=== PATIENT | male | born 1940 | race Two or more races ===

== ENCOUNTER 2017-11-12 22:58 | Inpatient (IN) | payer OTHER, MEDICAID ==
[~2017-11-12] VITALS: Ht 160 cm; Wt 52.8 kg
[2017-11-12 23:08] VITALS: BP 123/60
[2017-11-13] VITALS (10 sets, daily range): BP systolic 91–136; BP diastolic 57–70
[2017-11-13 00:36] LABS: BASOPHILS % (AUTO) 0.8 % (0.0-2.0); HEMATOCRIT 32.6 % (42.0-52.0); HEMOGLOBIN 10.7 G/DL (14.2-18.0); LYMPHOCYTES % (AUTO) 21.1 % (20.0-45.0); MEAN CORPUSCULAR VOLUME 89 FL (80-99); MONOCYTES % (AUTO) 11.7 % (1.0-10.0); NEUTROPHILS % (AUTO) 65.5 % (45.0-75.0); PLATELET COUNT 210 K/UL (150-450); RED BLOOD COUNT 3.66 M/UL (4.70-6.10); RED CELL DISTRIBUTION WIDTH 15.8 % (11.6-14.8); WHITE BLOOD COUNT 6.4 K/UL (4.8-10.8)
[2017-11-13 00:46] LABS: ANION GAP 2 mmol/L (5-15); BLOOD UREA NITROGEN 15 mg/dL (7-18); CALCIUM 6.9 MG/DL (8.5-10.1); CARBON DIOXIDE 35 MMOL/L (21-32); CHLORIDE 99 MMOL/L (98-107); CREATININE 0.8 MG/DL (0.55-1.30); POTASSIUM 3.1 MMOL/L (3.5-5.1); SODIUM 136 MMOL/L (136-145)
[2017-11-13 00:49] LABS: INR 1.2 (0.9-1.1)
[2017-11-13 00:56] LABS: ALANINE AMINOTRANSFERASE 18 U/L (12-78); ALBUMIN 1.9 G/DL (3.4-5.0); ALBUMIN/GLOBULIN RATIO 0.6 (1.0-2.7); ALKALINE PHOSPHATASE 60 U/L (46-116); ASPARTATE AMINO TRANSFERASE 22 U/L (15-37); BILIRUBIN,TOTAL 0.3 MG/DL (0.2-1.0); CREATINE KINASE 50 U/L (26-308)
[2017-11-13] MEDS ORDERED: FUROSEMIDE40 MG ORAL (01:50)
[2017-11-13] MEDS ORDERED: HUMALOG 75/255 UNITS SUBQ (01:50)
[2017-11-13] MEDS ORDERED: ASPIR 8181 MG ORAL (01:50)
[2017-11-13] MEDS ORDERED: FERROUSUL325 M1 PO (01:50)
[2017-11-13] MEDS ORDERED: METRONIDAZOLE500 MG ORAL (01:50)
[2017-11-13] MEDS ORDERED: GABAPENTIN600 MG ORAL (01:50)
[2017-11-13] MEDS ORDERED: MAGNESIUM OXID400 M1 ORAL (01:50)
[2017-11-13] MEDS ORDERED: BUSPIRONE HCL10 M1 ORAL (01:50)
[2017-11-13] MEDS ORDERED: OMEPRAZOLE40 M1 ORAL (01:50)
[2017-11-13] MEDS ORDERED: METOPROLOL TART25 MG ORAL (01:50)
[2017-11-13] MEDS ORDERED: DICYCLOMINE HCL10 MG PO (01:50)
[2017-11-13] MEDS ORDERED: COLACE100 MG ORAL (01:50)
[2017-11-13] MEDS ORDERED: POTASSIUM CHLO20 ME3 PO (01:57)
[2017-11-13] MEDS ORDERED: PRO-STAT LIQUID30 ML ORAL (01:57)
[2017-11-13] MEDS ORDERED: ACETAMINOPHEN325 M1 ORAL (01:57)
[2017-11-13] MEDS ORDERED: TEMAZEPAM30 MG ORAL (01:57)
[2017-11-13] MEDS ORDERED: TRAMADOL HCL50 MG ORAL (01:57)
--- NOTE | 2017-11-13 02:29 | Emergency Room Report ---
History of Present Illness General Chief Complaint: Syncope Source: Patient Present Illness HPI Patient brought by EMS from after a syncopal episode. He was hypotensive in the field and 100 ml NS were given with improvement in BP. There was no head trauma sustained when he passed out. Patient denies chest pain, headache, dyspnea, NVD, dysuria, extremity pain, rashes. He is on Lasix and has edema. Apparently, he has problems with low potassium. No fevers. Daughter states he was complaining of thirst the last 2 days. He has dementia and confabulates. Allergies: Coded Allergies: NAPROXEN (Verified Allergy, Unknown, 11/12/17) Patient History Limited by: medical condition Past Medical History: see triage record Past Surgical History: other - L knee replacement Social History Narrative SNF Reviewed Nursing Documentation: PMH: Agreed; PSxH: Agreed Nursing Documentation-PMH Hx Hypertension: Yes Hx Diabetes: Yes - DM II Hx Cancer: Yes - Colon Cancer Review of Systems All Other Systems: limited Physical Exam Vital Signs Date Time Temp Pulse Resp B/P (MAP) Pulse Ox O2 Delivery O2 Flow Rate FiO2 11/12/17 22:57 98.4 86 16 87/59 100 Room Air 98.4 Sp02 EP Interpretation: reviewed, normal General Appearance: well appearing, no apparent distress, GCS 15 Head: normocephalic Eyes: bilateral eye normal inspection, bilateral eye PERRL ENT: moist mucus membranes Neck: supple Respiratory: chest non-tender, lungs clear, normal breath sounds Cardiovascular #1: regular rate, rhythm, edema - 3+ pitting LE bilat Cardiovascular #2: 2+ radial (R), 2+ dorsalis pedis (R), 2+ dorsalis pedis (L) Gastrointestinal: normal inspection, normal bowel sounds, non tender, no mass, non-distended Genitourinary: no CVA tenderness Musculoskeletal: back normal, normal range of motion, no calf tenderness, Xiomara 's Sign negative Neurologic: alert, motor strength/tone normal, DTRs symmetric, sensory intact, oriented - X2 Psychiatric: mood/affect normal - poor recent memory and confabulates Skin: normal inspection, warm/dry Medical Decision Making Diagnostic Impression: Primary Impression: Syncope Qualified Codes: R55 - Syncope and collapse Additional Impressions: Hypotension (arterial) Qualified Codes: I95.9 - Hypotension, unspecified Contraction alkalosis Hypokalemia Edema Qualified Codes: E40 - Kwashi[place]or Dementia Qualified Codes: F03.90 - Unspecified dementia without behavioral disturbance ER Course Patient with syncope and hypotension. DDX: sepsis, AMI, dehydration, arrhythmia amongst others. Patient with total body sodium excess. Evaluation with EKG, CXR ands labs. BP better with small amount of IV fluids. Based on exam, PE excluded. EKG without injury. CXR no CHF. Labs with low potassium and elevated bicarb. Normal renal function. Albumen low. Normal WBC, anemia. Hypotensive again here. Fluid bolus ordered. BC and lactate ordered. Lactate normal. Discussed with Dr. Clark (IPA) agrees with admission here. Discussed CT of head, not indicated at this time. BP better after fluids. Admit tele Dr. Holguin. Laboratory Tests Test 11/13/17 00:20 11/13/17 02:35 White Blood Count 6.4 K/UL (4.8-10.8) Red Blood Count 3.66 M/UL (4.70-6.10) L Hemoglobin 10.7 G/DL (14.2-18.0) L Hematocrit 32.6 % (42.0-52.0) L Mean Corpuscular Volume 89 FL (80-99) Mean Corpuscular Hemoglobin 29.2 PG (27.0-31.0) Mean Corpuscular Hemoglobin Concent 32.8 G/DL (32.0-36.0) Red Cell Distribution Width 15.8 % (11.6-14.8) H Platelet Count 210 K/UL (150-450) Mean Platelet Volume 5.5 FL (6.5-10.1) L Neutrophils (%) (Auto) 65.5 % (45.0-75.0) Lymphocytes (%) (Auto) 21.1 % (20.0-45.0) Monocytes (%) (Auto) 11.7 % (1.0-10.0) H Eosinophils (%) (Auto) 1.0 % (0.0-3.0) Basophils (%) (Auto) 0.8 % (0.0-2.0) Prothrombin Time 12.8 SEC (9.30-11.50) H Prothrombin Time INR 1.2 (0.9-1.1) H PTT 25 SEC (23-33) Sodium Level 136 MMOL/L (136-145) Potassium Level 3.1 MMOL/L (3.5-5.1) L Chloride Level 99 MMOL/L (98-107) Carbon Dioxide Level 35 MMOL/L (21-32) H Anion Gap 2 mmol/L (5-15) L Blood Urea Nitrogen 15 mg/dL (7-18) Creatinine 0.8 MG/DL (0.55-1.30) Estimate Glomerular Filtration Rate mL/min (>60) Glucose Level 112 MG/DL (74-106) H Calcium Level 6.9 MG/DL (8.5-10.1) L Total Bilirubin 0.3 MG/DL (0.2-1.0) Aspartate Amino Transferase (AST) 22 U/L (15-37) Alanine Aminotransferase (ALT) 18 U/L (12-78) Alkaline Phosphatase 60 U/L (46-116) Total Creatine Kinase 50 U/L (26-308) Troponin I 0.009 ng/mL (0.000-0.056) Pro-B-Type Natriuretic Peptide 170 pg/mL (0-125) H Total Protein 5.1 G/DL (6.4-8.2) L Albumin 1.9 G/DL (3.4-5.0) L Globulin 3.2 g/dL Albumin/Globulin Ratio 0.6 (1.0-2.7) L Urine Color Pale yellow Urine Appearance Clear Urine pH 7 (4.5-8.0) Urine Specific Wilson 1.005 (1.005-1.035) Urine Protein Negative (NEGATIVE) Urine Glucose (UA) Negative (NEGATIVE) Urine Ketones Negative (NEGATIVE) Urine Occult Blood Negative (NEGATIVE) Urine Nitrite Negative (NEGATIVE) Urine Bilirubin Negative (NEGATIVE) Urine Urobilinogen Normal MG/DL (0.0-1.0) Urine Leukocyte Esterase Negative (NEGATIVE) Lactic Acid Level 1.20 mmol/L (0.4-2.0) EKG Diagnostic Results Rate: normal Rhythm: NSR Rhythm Strip Diag. Results EP Interpretation: yes Rhythm: NSR, no PVC's, no ectopy Chest X-Ray Diagnostic Results Chest X-Ray Diagnostic Results : Chest X-Ray Ordered: Yes # of Views/Limited/Complete: 1 View Indication: Other Interpretation: no consolidation, no effusion, no pneumothorax Impression: Other Electronically Signed by: Electronically signed by Jose Rafael Crowe MD Status: improved Disposition: ADMITTED INPATIENT Condition: Serious Referrals: [facility],REFERR[facility] (PCP) Jose Rafael Crowe M.D. Nov 13, 2017 02:29
[2017-11-13] MEDS ORDERED: NS 250 ML IVPB ONE (02:30)
[2017-11-13] MEDS ORDERED: Glucagon 1mg Inj IV ONE (02:30)
[2017-11-13 03:08] LABS: APPEARANCE,URINE CLEAR; BILIRUBIN, URINE NEGATIVE (NEGATIVE); COLOR,URINE PALE YELLOW; GLUCOSE, URINE (UA) NEGATIVE (NEGATIVE); KETONES,URINE NEGATIVE (NEGATIVE); LEUKOCYTE ESTERASE ,URINE NEGATIVE (NEGATIVE); NITRITE,URINE NEGATIVE (NEGATIVE); PH,URINE 7 (4.5-8.0); PROTEIN,URINE NEGATIVE (NEGATIVE); UROBILINOGEN,URINE NORMAL MG/DL (0.0-1.0)
--- NOTE | 2017-11-13 10:12 | Diagnostic Imaging Report ---
Indication: Dyspnea Comparison: None A single view chest radiograph was obtained. Findings: Cardiomediastinal appearance is within normal limits for age. Pulmonary vascularity is appropriate. The diaphragmatic contour is smooth and costophrenic angles are sharp. No pleural effusions are identified. The bones are osteopenic. Degenerative changes of thoracic spine noted. Impression: No acute findings
[2017-11-13] MEDS ORDERED: traMADol 50mg tab ORAL PRN (11:00)
[2017-11-13] MEDS ORDERED: Acetaminophen 500mg (ES) tab ORAL PRN (11:00)
[2017-11-13] MEDS: metroNIDAZOLE 500mg tab ORAL SCH ×2 (14:01→22:23)
--- NOTE | 2017-11-13 16:30 | History & Physical ---
History and Physical History & Physicial dict hypotension, syncope c diff colitis DM called ID, cardiology edema; no fluids needed echo may need midodrine for autonomic neuropathy Jerrod Holguin MD Nov 13, 2017 16:30
--- NOTE | 2017-11-13 16:39 | Cardiology Report ---
APPROVED REPORT EKG Measurement Heart [id number] Sinus rhythm with premature supraventricular complexes and with frequent premature ventricular complexes Otherwise normal ECG
--- NOTE | 2017-11-13 17:13 | Cardiology Progress Note ---
Assessment/Plan Assessment/Plan full note dicated orthsttic vitl ivf echo serial enzyme kg tele observation [id number] Objective Last 24 Hour Vital Signs Date Time Temp Pulse Resp B/P (MAP) Pulse Ox O2 Delivery O2 Flow Rate FiO2 11/13/17 08:51 Room Air 11/13/17 08:20 98.3 96 18 107/61 100 Room Air 98.3 11/13/17 08:20 98.3 96 18 107/61 100 Room Air 208.9 11/13/17 08:00 97.4 99 18 108/66 (80) 99 97.4 11/13/17 07:44 98.1 94 18 94/57 98 Room Air 98.1 11/13/17 05:58 102 19 95/58 98 Room Air 11/13/17 04:02 88 15 118/58 98 Room Air 11/13/17 02:51 98.1 91 12 136/70 100 Room Air 98.1 11/13/17 00:51 98.0 87 17 94/57 97 Room Air 98.0 11/12/17 23:08 123/60 11/12/17 22:57 98.4 86 16 87/59 100 Room Air 98.4 Intake and Output 11/12/17 11/13/17 19:00 07:00 Intake Total 250 ml Balance 250 ml IV Total 250 ml # Voids 1 Laboratory Tests Test 11/13/17 00:20 11/13/17 02:35 White Blood Count 6.4 K/UL (4.8-10.8) Red Blood Count 3.66 M/UL (4.70-6.10) L Hemoglobin 10.7 G/DL (14.2-18.0) L Hematocrit 32.6 % (42.0-52.0) L Mean Corpuscular Volume 89 FL (80-99) Mean Corpuscular Hemoglobin 29.2 PG (27.0-31.0) Mean Corpuscular Hemoglobin Concent 32.8 G/DL (32.0-36.0) Red Cell Distribution Width 15.8 % (11.6-14.8) H Platelet Count 210 K/UL (150-450) Mean Platelet Volume 5.5 FL (6.5-10.1) L Neutrophils (%) (Auto) 65.5 % (45.0-75.0) Lymphocytes (%) (Auto) 21.1 % (20.0-45.0) Monocytes (%) (Auto) 11.7 % (1.0-10.0) H Eosinophils (%) (Auto) 1.0 % (0.0-3.0) Basophils (%) (Auto) 0.8 % (0.0-2.0) Prothrombin Time 12.8 SEC (9.30-11.50) H Prothromb Time International Ratio 1.2 (0.9-1.1) H Activated Partial Thromboplast Time 25 SEC (23-33) Sodium Level 136 MMOL/L (136-145) Potassium Level 3.1 MMOL/L (3.5-5.1) L Chloride Level 99 MMOL/L (98-107) Carbon Dioxide Level 35 MMOL/L (21-32) H Anion Gap 2 mmol/L (5-15) L Blood Urea Nitrogen 15 mg/dL (7-18) Creatinine 0.8 MG/DL (0.55-1.30) Estimat Glomerular Filtration Rate mL/min (>60) Glucose Level 112 MG/DL (74-106) H Calcium Level 6.9 MG/DL (8.5-10.1) L Total Bilirubin 0.3 MG/DL (0.2-1.0) Aspartate Amino Transf (AST/SGOT) 22 U/L (15-37) Alanine Aminotransferase (ALT/SGPT) 18 U/L (12-78) Alkaline Phosphatase 60 U/L (46-116) Total Creatine Kinase 50 U/L (26-308) Troponin I 0.009 ng/mL (0.000-0.056) Pro-B-Type Natriuretic Peptide 170 pg/mL (0-125) H Total Protein 5.1 G/DL (6.4-8.2) L Albumin 1.9 G/DL (3.4-5.0) L Globulin 3.2 g/dL Albumin/Globulin Ratio 0.6 (1.0-2.7) L Urine Color Pale yellow Urine Appearance Clear Urine pH 7 (4.5-8.0) Urine Specific [place] 1.005 (1.005-1.035) Urine Protein Negative (NEGATIVE) Urine Glucose (UA) Negative (NEGATIVE) Urine Ketones Negative (NEGATIVE) Urine Occult Blood Negative (NEGATIVE) Urine Nitrite Negative (NEGATIVE) Urine Bilirubin Negative (NEGATIVE) Urine Urobilinogen Normal MG/DL (0.0-1.0) Urine Leukocyte Esterase Negative (NEGATIVE) Lactic Acid Level 1.20 mmol/L (0.4-2.0) Yuniel Pina MD Nov 13, 2017 17:13
[2017-11-13] MEDS: NovoLOG Insulin Flexpen SUBQ SCH ×2 (17:43→21:00)
[2017-11-13] MEDS: Magnesium Oxide 400mg tab ORAL SCH (17:48)
[2017-11-13] MEDS: BusPIRone 5mg Tab ORAL SCH (17:48)
[2017-11-13] MEDS: Dicyclomine HCl 10mg/5ml oral soln ORAL SCH (17:48)
[2017-11-13] MEDS: Vancomycin oral 125mg/2.5ml ORAL SCH ×2 (19:03→23:37)
[2017-11-13] MEDS ORDERED: Metoprolol 25mg tab ORAL SCH (21:00)
--- NOTE | 2017-11-13 23:00 | History and Physical Report ---
DATE OF ADMISSION: 11/12/2017 HISTORY OF PRESENT ILLNESS: The patient is a poor historian. He was transferred here to the emergency room from a skilled nursing because of hypotension and syncope. He has been at the nursing facility since approximately 11/06/2017. Prior to that, he was hospitalized at [facility] with C. diff colitis and abdominal pain. The patient was evaluated in the emergency department and became hypotensive again. Fluids were given and he was admitted. PAST MEDICAL HISTORY: Showed C. 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 MEDICATIONS: Reviewed and reconciled. ALLERGIES: Naprosyn. REVIEW OF SYSTEMS: The patient feels weak. He continues to have diarrhea and bloating. He has no shortness of breath or chest pain. He has ankle edema. There is no cardiac history. PHYSICAL EXAMINATION: GENERAL: The patient is alert and responds appropriately. He appears weak and chronically ill. There is no fever. VITAL SIGNS: Blood pressure ranged from 87/59 to 108/66 today. Other vital signs are normal. Saturation is normal. HEENT: The head is normocephalic. NECK: He has no jugular venous distention. CHEST: Clear. CARDIAC: Rhythm is regular. ABDOMEN: Soft, but moderately distended. There is no tenderness or mass. There is no ascites or organomegaly. EXTREMITIES: A 2+ edema. No clubbing or cyanosis. LABORATORY DATA: The white count is normal. The hemoglobin is 10.7. Platelets are normal. The potassium is low at 3.1. Blood sugar 112. Albumin 1.9. Natriuretic peptide 170. Calcium is low at 6.9. Coagulation is normal. Urinalysis is negative. IMPRESSION: 1. Hypotension. 2. Clostridium difficile colitis with persistent diarrhea. 3. Diabetes with history of neuropathy. 4. Severe protein-calorie malnutrition with edema. 5. Possible congestive heart failure. PLAN: The patient will be evaluated with appropriate laboratory studies and echocardiogram will be obtained. He is already fluid overloaded and I do not believe additional fluids are indicated. Cardiology consultation has been requested. Jerrod Holguin M.D. DR: ADALID JOB#: [id number] CC: Jerrod Holguin M.D.; Fax#: [phone] DEMARCO JAMES M.D. ; FAX#: [phone]
[2017-11-14] VITALS (7 sets, daily range): BP systolic 112–173; BP diastolic 64–90
--- NOTE | 2017-11-14 00:15 | Consultation ---
DATE OF CONSULTATION: 11/13/2017 CARDIOLOGY CONSULTATION CONSULTING PHYSICIAN: Yuniel Pina M.D. REFERRING PHYSICIAN: Jerrod Holguin M.D. REASON FOR REFERRAL: Syncope. HISTORY OF PRESENT ILLNESS: This is an elderly gentleman who is a resident of convalescent facility, who has had several hospitalizations recently and recently discharged from [facility] to a convalescent facility on 11/05/2017. He presents to this hospital by paramedics. According to document manager run sheet, the patient with generalized weakness and possible syncope episode. The patient was found on the ground next to his bed, alert and slow to respond. No obvious trauma. No neurological deficit and the patient denied any chest pain, shortness of breath, nausea, or vomiting. The patient himself tells me he does not remember how he got to the hospital here. He is not sure what has happened. Nevertheless, he does not have any chest pain or pressure. There is no PND. There is no orthopnea. No palpitations. He denies any dizziness on standing on usual basis. His main issue is that he has had problems with a lot of gas and abdominal distention it seems like. He has minimal diarrhea according to himself. He has never had a syncopal episode before. He has never had any cardiac conditions previously. PAST MEDICAL HISTORY: According to the records from [facility] includes history of intractable diarrhea secondary to C. difficile colitis, sepsis, dehydration, diabetes mellitus, hypertension, history of colon cancer that was resected and radiation therapy subsequent to that back in August 2017. He denies any history of stroke, history of hyperlipidemia. No history of hepatitis or tuberculosis. No asthma or emphysema. No ulcers. No kidney problems, liver problems, thyroid problems. Questionable anemia. Possibly arthritis. No HIV or AIDS. No blood clots and he does have enlarged prostate on questioning. MEDICATIONS: Buspirone, aspirin 81 mg, ferrous sulfate, Flagyl, insulin sliding scale, magnesium oxide, omeprazole, Pro-Stat, temazepam, tramadol, and Tylenol. Reportedly, he is on metoprolol too although I am not completely clear on that medication at this time. ALLERGIES: No allergies to medications. SOCIAL HISTORY: He used to smoke and drink, both were discontinued back in 1979. He denies any use of drugs. REVIEW OF SYSTEMS: GASTROINTESTINAL: He has a lot of gas as mentioned with good distention. No bloody or black stool. GENITOURINARY: Denies any burning or blood in the urine. PULMONARY: Occasional coughing. CONSTITUTIONAL: Negative. NEUROLOGIC: Negative. PHYSICAL EXAMINATION: GENERAL: Shows to be elderly gentleman, in no respiratory distress, lying relatively flat at approximately 10 degrees head-of-bed elevation. NECK: Supple. No jugular venous distention. No abdominojugular reflux noted. LUNGS: Clear to auscultation and percussion. CARDIAC: S1 is normal. S2 is normal. Regular rate and rhythm. No heaves, thrills, gallops, or rubs are noted. ABDOMEN: Somewhat distended. No guarding. No rigidity. No tympany and no rebound tenderness. EXTREMITIES: There is no clubbing or cyanosis, but he does have some edema of 1 to 2+ to the lower extremities bilaterally. ASSESSMENT AND PLAN: 1. Altered level of consciousness with presentation to the emergency room. 2. Possible syncope. 3. History of colorectal cancer, status post resection, chemo, and radiation therapy. 4. Recent C. difficile colitis with profound diarrhea. 5. Diabetes mellitus. 6. Hypertension. 7. Previous history of tobacco and alcohol use. Dr. Holguin, this patient was seen in cardiac consultation. The document manager run sheet indicated that the patient when initially found had blood pressure documented by the paramedics in the 87/39 and subsequently 90/61. His blood pressure here has been as high as 107/61. He does have some peripheral edema. He is afebrile at the present time. His laboratories show white count to be normal, hemoglobin low at 10.7, and platelet count of 210,000. Sodium was 136, potassium 3.1, chloride 99, bicarbonate 35, BUN of 15, creatinine 0.8, and glucose of 112. Calcium is decreased at 6.9 with albumin of 1.9. ProBNP is only 170. Total protein of 5.1. Lactic acid of 1.2. Coagulations, INR 1.0 and PTT of 25. His electrocardiogram shows sinus with premature atrial complexes, really no significant ST or T-wave abnormalities. He does not endorse any signs or symptoms of congestive heart failure. His x-ray of the chest that was performed in the emergency room shows appropriate vascularity contour, diaphragm smooth, costophrenic angles are sharp, no effusion identified, bones are osteopenic. The etiology of syncope needs to be clarified. He did have some low blood pressure at the time of his presentation to the emergency room or being found by the paramedics, although he does have some peripheral edema. He does carry a diagnosis of hypertension and he is on metoprolol being 25 mg twice a day. Nevertheless, he will have orthostatic vitals checked. An echocardiogram will be ordered. Serial enzymes will be checked. The possible etiologies of course include vasodepressor syncope or bradycardia. Bradycardia has not been documented on any of his rhythms despite the fact that he previously has been on beta-blockers. I recommend IV fluid administration if the echocardiogram is normal and repeat orthostatic vitals. Yuniel Pina M.D. DR: TALON JOB#: [id number] CC:
[2017-11-14] MEDS: Vancomycin oral 125mg/2.5ml ORAL SCH ×3 (06:10→17:17)
[2017-11-14] MEDS: metroNIDAZOLE 500mg tab ORAL SCH ×2 (06:10→13:26)
[2017-11-14] MEDS: NovoLOG Insulin Flexpen SUBQ SCH ×4 (06:12→21:16)
[2017-11-14 07:51] LABS: BASOPHILS % (AUTO) 1.2 % (0.0-2.0); EOSINOPHILS % (AUTO) 0.9 % (0.0-3.0); HEMATOCRIT 30.9 % (42.0-52.0); HEMOGLOBIN 10.1 G/DL (14.2-18.0); MEAN CORPUSCULAR VOLUME 90 FL (80-99); MONOCYTES % (AUTO) 11.7 % (1.0-10.0); NEUTROPHILS % (AUTO) 63.3 % (45.0-75.0); PLATELET COUNT 221 K/UL (150-450); RED BLOOD COUNT 3.43 M/UL (4.70-6.10); RED CELL DISTRIBUTION WIDTH 16.5 % (11.6-14.8); WHITE BLOOD COUNT 4.5 K/UL (4.8-10.8)
[2017-11-14 08:11] LABS: ALANINE AMINOTRANSFERASE 18 U/L (12-78); ALBUMIN 1.8 G/DL (3.4-5.0); ALBUMIN/GLOBULIN RATIO 0.6 (1.0-2.7); ALKALINE PHOSPHATASE 39 U/L (46-116); ANION GAP 3 mmol/L (5-15); ASPARTATE AMINO TRANSFERASE 21 U/L (15-37); BILIRUBIN,TOTAL 0.4 MG/DL (0.2-1.0); BLOOD UREA NITROGEN 8 mg/dL (7-18); CALCIUM 7.3 MG/DL (8.5-10.1); CARBON DIOXIDE 33 MMOL/L (21-32); CHLORIDE 104 MMOL/L (98-107); CREATININE 0.7 MG/DL (0.55-1.30); SODIUM 140 MMOL/L (136-145)
[2017-11-14] MEDS: BusPIRone 5mg Tab ORAL SCH ×2 (09:14→17:09)
[2017-11-14] MEDS: Dicyclomine HCl 10mg/5ml oral soln ORAL SCH ×2 (09:14→17:08)
[2017-11-14] MEDS: Magnesium Oxide 400mg tab ORAL SCH ×2 (09:15→17:08)
--- NOTE | 2017-11-14 18:43 | Infectious Diseases Prog Note ---
Assessment/Plan Assessment/Plan Full consult dictated: A) 1) c.diff. colitis and diarrhea 2) pmh noted 3) allergies - naproxen P) 1) po vancomycin - plan on 10-14 day course 2) f/u labs 3) d/w Dr. Holguin 4) thank you Subjective Allergies: Coded Allergies: NAPROXEN (Verified Allergy, Unknown, 11/12/17) Objective Vital Signs Last 24 Hour Vital Signs Date Time Temp Pulse Resp B/P (MAP) Pulse Ox O2 Delivery O2 Flow Rate FiO2 11/14/17 16:00 97.9 69 20 125/81 (96) 98 97.9 11/14/17 16:00 94 11/14/17 12:00 92 11/14/17 12:00 97.9 85 19 112/64 (80) 98 97.9 11/14/17 09:00 125 11/14/17 09:00 104 11/14/17 09:00 109 11/14/17 09:00 Room Air 11/14/17 08:00 98.6 104 17 112/71 (85) 96 98.6 11/14/17 08:00 111 11/14/17 04:00 98.2 97 18 112/71 (85) 95 98.2 11/14/17 03:29 96 11/14/17 00:25 98.7 95 19 118/72 (87) 98 98.7 11/14/17 00:00 98.6 93 19 173/90 (117) 98 98.6 11/13/17 23:56 86 11/13/17 20:00 98.7 87 18 91/61 (71) 98 98.7 11/13/17 19:58 95 11/13/17 19:27 Room Air Height (Feet): 5 Height (Inches): 3.00 Weight (Pounds): 116 Microbiology Date/Time Source Procedure Growth Status 11/13/17 02:35 Blood Blood Culture - Preliminary NO GROWTH AFTER 24 HOURS Resulted 11/13/17 02:35 Blood Blood Culture - Preliminary NO GROWTH AFTER 24 HOURS Resulted 11/13/17 14:20 Stool Clostridium difficile Toxin Assay - Final Complete Laboratory Tests Test 11/14/17 07:10 White Blood Count 4.5 K/UL (4.8-10.8) L Red Blood Count 3.43 M/UL (4.70-6.10) L Hemoglobin 10.1 G/DL (14.2-18.0) L Hematocrit 30.9 % (42.0-52.0) L Mean Corpuscular Volume 90 FL (80-99) Mean Corpuscular Hemoglobin 29.3 PG (27.0-31.0) Mean Corpuscular Hemoglobin Concent 32.6 G/DL (32.0-36.0) Red Cell Distribution Width 16.5 % (11.6-14.8) H Platelet Count 221 K/UL (150-450) Mean Platelet Volume 5.6 FL (6.5-10.1) L Neutrophils (%) (Auto) 63.3 % (45.0-75.0) Lymphocytes (%) (Auto) 23.0 % (20.0-45.0) Monocytes (%) (Auto) 11.7 % (1.0-10.0) H Eosinophils (%) (Auto) 0.9 % (0.0-3.0) Basophils (%) (Auto) 1.2 % (0.0-2.0) Sodium Level 140 MMOL/L (136-145) Potassium Level 4.0 MMOL/L (3.5-5.1) Chloride Level 104 MMOL/L (98-107) Carbon Dioxide Level 33 MMOL/L (21-32) H Anion Gap 3 mmol/L (5-15) L Blood Urea Nitrogen 8 mg/dL (7-18) Creatinine 0.7 MG/DL (0.55-1.30) Estimat Glomerular Filtration Rate mL/min (>60) Glucose Level 107 MG/DL (74-106) H Hemoglobin A1c 5.6 % (4.3-6.0) Calcium Level 7.3 MG/DL (8.5-10.1) L Magnesium Level 1.6 MG/DL (1.8-2.4) L Total Bilirubin 0.4 MG/DL (0.2-1.0) Aspartate Amino Transf (AST/SGOT) 21 U/L (15-37) Alanine Aminotransferase (ALT/SGPT) 18 U/L (12-78) Alkaline Phosphatase 39 U/L (46-116) L Troponin I 0.014 ng/mL (0.000-0.056) Total Protein 4.7 G/DL (6.4-8.2) L Albumin 1.8 G/DL (3.4-5.0) L Globulin 2.9 g/dL Albumin/Globulin Ratio 0.6 (1.0-2.7) L Prostate Specific Antigen 0.25 ng/mL (0.13-4.0) Thyroid Stimulating Hormone (TSH) 6.500 uiU/mL (0.358-3.740) Current Medications Medications (Trade) Dose Ordered Sig/David Route PRN Reason Start Time Stop Time Status Last Admin Dose Admin Acetaminophen (Tylenol) 500 mg BIDPRN PRN ORAL Mild Pain/Temp > 100.5 11/13/17 11:00 12/13/17 10:59 Buspirone HCl (Buspar) 10 mg BID ORAL 11/13/17 18:00 12/13/17 17:59 11/14/17 17:09 Dextrose (Dextrose 50%) 25 ml STAT PRN IV Hypoglycemia 11/13/17 12:00 12/13/17 11:59 Dextrose (Dextrose 50%) 50 ml STAT PRN IV Hypoglycemia 11/13/17 12:00 12/13/17 11:59 Dicyclomine HCl (Bentyl) 20 mg BID ORAL 11/13/17 18:00 12/13/17 17:59 11/14/17 17:08 Ferrous Sulfate (Feosol) 325 mg BID ORAL 11/13/17 18:00 12/13/17 17:59 11/14/17 17:09 Gabapentin (Neurontin) 600 mg BEDTIME ORAL 11/13/17 21:00 12/13/17 20:59 11/13/17 21:01 Insulin Aspart (NovoLOG) BEFORE MEALS AND HS SUBQ 11/13/17 16:30 12/13/17 16:29 11/14/17 17:01 Magnesium Oxide (Mag-Ox 400mg) 400 mg BID ORAL 11/13/17 18:00 12/13/17 17:59 11/14/17 17:08 Pantoprazole (Protonix) 40 mg DAILY ORAL 11/14/17 09:00 12/14/17 08:59 11/14/17 09:15 Potassium Chloride (K-Dur) 20 meq TWICE A DAY ORAL 11/13/17 18:00 12/13/17 17:59 11/14/17 17:09 Temazepam (Restoril) 30 mg HSPRN PRN ORAL Insomnia 11/13/17 21:00 11/20/17 20:59 Tramadol HCl (Ultram) 50 mg Q8H PRN ORAL Moderate Pain (Pain Scale 4-6) 11/13/17 11:00 11/20/17 10:59 Vancomycin HCl (Vancomycin) 125 mg EVERY 6 HOURS ORAL 11/13/17 18:30 11/20/17 18:29 11/14/17 17:17 Carlito Tripp MD Nov 14, 2017 18:43
--- NOTE | 2017-11-14 20:05 | Cardiology Progress Note ---
Assessment/Plan Assessment/Plan 1. Altered level of consciousness with presentation to the emergency room. 2. syncope. 3. History of colorectal cancer, status post resection, chemo, and radiation therapy. 4. Recent C. difficile colitis with profound diarrhea. 5. Diabetes mellitus. 6. Hypertension. 7. Previous history of tobacco and alcohol use. endorses orthostatic vital but was not orthostatic yest evening will give bolus of ivf check orthostatic in am tele neg ekg neg prelim echo noted trop neg probnp normal hhypoalbuminemic Subjective Cardiovascular: Reports: other - dizzy when stood up ; Denies: chest pain Respiratory: Denies: shortness of breath Gastrointestinal/Abdominal: Denies: abdominal pain Genitourinary: Denies: burning Objective Last 24 Hour Vital Signs Date Time Temp Pulse Resp B/P (MAP) Pulse Ox O2 Delivery O2 Flow Rate FiO2 11/14/17 16:00 97.9 69 20 125/81 (96) 98 97.9 11/14/17 16:00 94 11/14/17 12:00 92 11/14/17 12:00 97.9 85 19 112/64 (80) 98 97.9 11/14/17 09:00 125 11/14/17 09:00 104 11/14/17 09:00 109 11/14/17 09:00 Room Air 11/14/17 08:00 98.6 104 17 112/71 (85) 96 98.6 11/14/17 08:00 111 11/14/17 04:00 98.2 97 18 112/71 (85) 95 98.2 11/14/17 03:29 96 11/14/17 00:25 98.7 95 19 118/72 (87) 98 98.7 11/14/17 00:00 98.6 93 19 173/90 (117) 98 98.6 11/13/17 23:56 86 General Appearance: no apparent distress, alert Neck: no JVD Cardiovascular: normal rate, regular rhythm Respiratory/Chest: lungs clear, normal breath sounds Abdomen: normal bowel sounds, non tender, soft Extremities: no swelling Intake and Output 11/13/17 11/14/17 19:00 07:00 Intake Total 660 ml 240 ml Balance 660 ml 240 ml Intake Oral 660 ml 240 ml # Voids 4 4 # Bowel Movements 2 4 Laboratory Tests Test 11/14/17 07:10 White Blood Count 4.5 K/UL (4.8-10.8) L Red Blood Count 3.43 M/UL (4.70-6.10) L Hemoglobin 10.1 G/DL (14.2-18.0) L Hematocrit 30.9 % (42.0-52.0) L Mean Corpuscular Volume 90 FL (80-99) Mean Corpuscular Hemoglobin 29.3 PG (27.0-31.0) Mean Corpuscular Hemoglobin Concent 32.6 G/DL (32.0-36.0) Red Cell Distribution Width 16.5 % (11.6-14.8) H Platelet Count 221 K/UL (150-450) Mean Platelet Volume 5.6 FL (6.5-10.1) L Neutrophils (%) (Auto) 63.3 % (45.0-75.0) Lymphocytes (%) (Auto) 23.0 % (20.0-45.0) Monocytes (%) (Auto) 11.7 % (1.0-10.0) H Eosinophils (%) (Auto) 0.9 % (0.0-3.0) Basophils (%) (Auto) 1.2 % (0.0-2.0) Sodium Level 140 MMOL/L (136-145) Potassium Level 4.0 MMOL/L (3.5-5.1) Chloride Level 104 MMOL/L (98-107) Carbon Dioxide Level 33 MMOL/L (21-32) H Anion Gap 3 mmol/L (5-15) L Blood Urea Nitrogen 8 mg/dL (7-18) Creatinine 0.7 MG/DL (0.55-1.30) Estimat Glomerular Filtration Rate mL/min (>60) Glucose Level 107 MG/DL (74-106) H Hemoglobin A1c 5.6 % (4.3-6.0) Calcium Level 7.3 MG/DL (8.5-10.1) L Magnesium Level 1.6 MG/DL (1.8-2.4) L Total Bilirubin 0.4 MG/DL (0.2-1.0) Aspartate Amino Transf (AST/SGOT) 21 U/L (15-37) Alanine Aminotransferase (ALT/SGPT) 18 U/L (12-78) Alkaline Phosphatase 39 U/L (46-116) L Troponin I 0.014 ng/mL (0.000-0.056) Total Protein 4.7 G/DL (6.4-8.2) L Albumin 1.8 G/DL (3.4-5.0) L Globulin 2.9 g/dL Albumin/Globulin Ratio 0.6 (1.0-2.7) L Prostate Specific Antigen 0.25 ng/mL (0.13-4.0) Thyroid Stimulating Hormone (TSH) 6.500 uiU/mL (0.358-3.740) Microbiology Date/Time Source Procedure Growth Status 11/13/17 02:35 Blood Blood Culture - Preliminary NO GROWTH AFTER 24 HOURS Resulted 11/13/17 02:35 Blood Blood Culture - Preliminary NO GROWTH AFTER 24 HOURS Resulted 11/13/17 14:20 Stool Clostridium difficile Toxin Assay - Final Complete Yuniel Pina MD Nov 14, 2017 20:05
--- NOTE | 2017-11-14 20:45 | General Progress Note ---
Assessment/Plan Assessment/Plan 1. Hypotension. 2. Clostridium difficile colitis with persistent diarrhea. 3. Diabetes with history of neuropathy. 4. Severe protein-calorie malnutrition with edema. 5. Possible congestive heart failure. soft stool, not diarrhea c diff neg BP and monitor stable prob dc tomorrow Subjective Constitutional: Reports: no symptoms Allergies: Coded Allergies: NAPROXEN (Verified Allergy, Unknown, 11/12/17) Objective Last 24 Hour Vital Signs Date Time Temp Pulse Resp B/P (MAP) Pulse Ox O2 Delivery O2 Flow Rate FiO2 11/14/17 16:00 97.9 69 20 125/81 (96) 98 97.9 11/14/17 16:00 94 11/14/17 12:00 92 11/14/17 12:00 97.9 85 19 112/64 (80) 98 97.9 11/14/17 09:00 125 11/14/17 09:00 104 11/14/17 09:00 109 11/14/17 09:00 Room Air 11/14/17 08:00 98.6 104 17 112/71 (85) 96 98.6 11/14/17 08:00 111 11/14/17 04:00 98.2 97 18 112/71 (85) 95 98.2 11/14/17 03:29 96 11/14/17 00:25 98.7 95 19 118/72 (87) 98 98.7 11/14/17 00:00 98.6 93 19 173/90 (117) 98 98.6 11/13/17 23:56 86 Intake and Output 11/13/17 11/14/17 19:00 07:00 Intake Total 660 ml 240 ml Balance 660 ml 240 ml Intake Oral 660 ml 240 ml # Voids 4 4 # Bowel Movements 2 4 Laboratory Tests 11/14/17 07:10: White Blood Count 4.5L, Red Blood Count 3.43L, Hemoglobin 10.1L, Hematocrit 30.9L, Mean Corpuscular Volume 90, Mean Corpuscular Hemoglobin 29.3, Mean Corpuscular Hemoglobin Concent 32.6, Red Cell Distribution Width 16.5H, Platelet Count 221, Mean Platelet Volume 5.6L, Neutrophils (%) (Auto) 63.3, Lymphocytes (%) (Auto) 23.0, Monocytes (%) (Auto) 11.7H, Eosinophils (%) (Auto) 0.9, Basophils (%) (Auto) 1.2, Sodium Level 140, Potassium Level 4.0, Chloride Level 104, Carbon Dioxide Level 33H, Anion Gap 3L, Blood Urea Nitrogen 8, Creatinine 0.7, Estimat Glomerular Filtration Rate , Glucose Level 107H, Hemoglobin A1c 5.6, Calcium Level 7.3L, Magnesium Level 1.6L, Total Bilirubin 0.4, Aspartate Amino Transf (AST/SGOT) 21, Alanine Aminotransferase (ALT/SGPT) 18, Alkaline Phosphatase 39L, Troponin I 0.014, Total Protein 4.7L, Albumin 1.8L , Globulin 2.9, Albumin/Globulin Ratio 0.6L, Prostate Specific Antigen 0.25, Thyroid Stimulating Hormone (TSH) 6.500H Height (Feet): 5 Height (Inches): 3.00 Weight (Pounds): 116 General Appearance: no apparent distress Neck: non-tender Cardiovascular: normal rate Respiratory/Chest: lungs clear Jerrod Holguin MD Nov 14, 2017 20:45
[2017-11-15] VITALS: BP_SYST 105; BP_SYST 127; BP_DIAS 54; BP_DIAS 68
[2017-11-15] MEDS: Vancomycin oral 125mg/2.5ml ORAL SCH ×4 (00:30→17:10)
--- NOTE | 2017-11-15 01:00 | Consultation ---
DATE OF CONSULTATION: 11/14/2017 INFECTIOUS DISEASE CONSULTATION CONSULTING PHYSICIAN: Carlito Tripp M.D. ATTENDING PHYSICIAN: Jerrod Holguin M.D. REFERRING PHYSICIAN: Jerrod Holguin M.D. REASON FOR CONSULTATION: C. difficile colitis. The patient's chief complaint coming into the hospital is syncope and hypertension. HISTORY OF PRESENT ILLNESS: This is a very pleasant 77-year-old male, who comes in to [facility] with hypertension and syncope. He also came in with abdominal pain. The patient was at [facility] with C. difficile colitis. Infectious Disease requested for antibiotic management. The patient has C. difficile colitis, diarrhea and abdominal pain. The patient had diarrhea yesterday, but improved today. The patient was initially started on p.o. Flagyl, however, yesterday I changed to p.o. vancomycin. Case discussed with Dr. Holguin. Also case discussed with the patient's daughter at the bedside. C. difficile test we had at [place] here is negative; however, the patient did have diarrhea and seems to improve with p.o. vancomycin so far. MAR is noted. Orders noted. Notes were reviewed. PAST MEDICAL HISTORY: The patient had a history of C. difficile in the past, diabetes, hypertension, generalized weakness, colon cancer, I believe he has had surgery for colon cancer, history of acid reflux or GERD, history of difficulty walking, polyneuropathy and anxiety. MEDICATIONS: Upon reviewing the MAR, he is on following medications. He is on pantoprazole. He is on temazepam. He is on gabapentin, vancomycin p.o. every 6 hours, magnesium oxide. He is on ferrous sulfate, Bentyl, and buspirone. He is on insulin and potassium. He is on acetaminophen and tramadol. Outside medications noted and reconciliated. ALLERGIES: Naproxen. No antibiotic allergies. FAMILY HISTORY: Noncontributory. SOCIAL HISTORY: Negative for smoking, alcohol, or drug abuse. REVIEW OF SYSTEMS: CONSTITUTIONAL: He has generalized fatigue and weakness. He has currently no fevers. HEAD AND NECK: No head pain, neck pain, or neck stiffness. CARDIAC: No chest pain or pressure. GASTROINTESTINAL: He did come in with abdominal pain and diarrhea. No nausea or vomiting. PULMONARY: No congestion, shortness of breath, hemoptysis or secretions. SKIN: No rashes or itching. EXTREMITY: No extremity pain. NEUROLOGIC: No seizures. No history of CVA tenderness. PHYSICAL EXAMINATION: GENERAL: Alert and responsive, no acute distress. VITAL SIGNS: Temperature 97.9 degrees, pulse rate 69, respiratory rate 20, blood pressure 125/81, and saturation 98%. HEAD AND NECK: Oral exam, no thrush. Eye, no icterus. Neck is supple. No JVD. Normocephalic. HEART: Regular. No gallop or murmur. ABDOMEN: Soft. Positive bowel sounds. Some discomfort, but no rebound. Some tenderness, but no rebound. LUNGS: Clear bilaterally. No rhonchi or rales. SKIN: No rash. MUSCULOSKELETAL: No effusion. Legs are without cellulitis. PERIPHERAL VASCULAR: No cyanosis. GENITOURINARY: No CVA tenderness. LINE SITES: Without phlebitis. NEUROLOGIC: Intact. Nonfocal. Alert and responsive. LABORATORY AND DIAGNOSTIC DATA: C. difficile here was negative. Blood cultures negative to date. UA negative. Creatinine 0.7. White count 4.5 and hemoglobin 10.1. Imaging studies, chest x-ray showed no acute findings. White count 4.5 and hemoglobin 10.1. Creatinine 0.7. Blood culture is negative. C. difficile negative at this hospital. ASSESSMENT AND PLAN: The patient has C. difficile colitis with diarrhea. We will continue p.o. vancomycin for 10 to 14 day course. C. difficile tests here is negative; however, sometimes this is a false negative since the patient has history of C. difficile and diarrhea coming in and also abdominal pain and cramping. Continue p.o. vancomycin 10 to 14 day course. Watch patient clinically. I will discontinue Flagyl. Again, most likely diagnoses is, 1. C. difficile colitis with diarrhea and abdominal pain. 2. Diabetes. 3. Hypertension. 4. Generalized weakness. 5. Difficulty walking. 6. Colon cancer. 7. GERD. 8. Prior neuropathy secondary to diabetes. 9. Anxiety. 10. I believe he has had surgery because of the colon cancer. 11. Allergy to Naprosyn or naproxen. 12. Family history is noncontributory. 13. Social history is negative. 14. MAR was noted. 15. Case discussed with RN. 16. Case was discussed with Dr. Holguin. 17. Continue treatment per primary consultants. Carlito Tripp M.D. DR: PAULA JOB#: [id number] CC:
[2017-11-15 04:00] VITALS: BP 112/69
[2017-11-15] MEDS: NovoLOG Insulin Flexpen SUBQ SCH ×4 (06:30→20:56)
[2017-11-15 08:00] VITALS: BP 128/80
[2017-11-15] MEDS: Magnesium Oxide 400mg tab ORAL SCH ×2 (08:30→17:09)
[2017-11-15] MEDS: Dicyclomine HCl 10mg/5ml oral soln ORAL SCH ×2 (08:30→17:10)
[2017-11-15] MEDS: BusPIRone 5mg Tab ORAL SCH ×2 (08:30→17:09)
[2017-11-15 08:34] LABS: BASOPHILS % (AUTO) 1.2 % (0.0-2.0); EOSINOPHILS % (AUTO) 1.6 % (0.0-3.0); HEMATOCRIT 32.8 % (42.0-52.0); HEMOGLOBIN 10.4 G/DL (14.2-18.0); MEAN CORPUSCULAR VOLUME 91 FL (80-99); MONOCYTES % (AUTO) 14.4 % (1.0-10.0); NEUTROPHILS % (AUTO) 60.8 % (45.0-75.0); PLATELET COUNT 234 K/UL (150-450); RED CELL DISTRIBUTION WIDTH 16.7 % (11.6-14.8); WHITE BLOOD COUNT 4.6 K/UL (4.8-10.8)
[2017-11-15 08:51] LABS: ANION GAP 4 mmol/L (5-15); BLOOD UREA NITROGEN 8 mg/dL (7-18); CALCIUM 7.4 MG/DL (8.5-10.1); CARBON DIOXIDE 29 MMOL/L (21-32); CHLORIDE 107 MMOL/L (98-107); CREATININE 0.7 MG/DL (0.55-1.30); POTASSIUM 3.9 MMOL/L (3.5-5.1); SODIUM 140 MMOL/L (136-145)
[2017-11-15 12:00] VITALS: BP 105/72
[2017-11-15 16:00] VITALS: BP 113/71
--- NOTE | 2017-11-15 16:59 | Cardiology Report ---
APPROVED REPORT EXAM: Two-dimensional and M-mode echocardiogram with Doppler and color Doppler. INDICATION Chest Pain M-Mode DIMENSIONS IVSd1.1 (0.7-1.1cm)Left Atrium (MM)4.0 (1.6-4.0cm) LVDd3.5 (3.5-5.6cm)Aortic Root2.9 (2.0-3.7cm) PWd1.1 (0.7-1.1cm)Aortic Cusp Exc.1.7 (1.5-2.0cm) LVDs1.8 (2.5-4.0cm) PWs1.6 cm Technically difficult and limited study due to poor acoustic windows. Study quality precludes accurate assessment of regional wall motion. Normal left ventricular chamber size, systolic function and wall motion to extent visualized. Left ventricular ejection fraction estimated to be 60-65 %. Borderline left ventricular hypertrophy. Anterior Echo-free space, may be due to pericardial fat or effusion. All other cardiac chamber sizes are within normal limits. Focal aortic valve sclerosis with adequate cusp excursion. Mildly thickened mitral valve leaflets with normal excursion. Mild mitral annulus and aortic root calcification. Pulmonic valve not visualized. Normal tricuspid valve structure. IVC is normal in size with physiological collapse. A color flow and spectral Doppler study was performed and revealed: No aortic insufficiency. No mitral regurgitation. Mitral diastolic velocities suggest mild left ventricular diastolic dysfunction (Grade I). Mild tricuspid regurgitation. Tricuspid systolic velocities suggests peak right ventricular systolic pressure of 34 mmHg.
[2017-11-15] MEDS ORDERED: RESTORIL15 MG ORAL (17:05)
[2017-11-15] MEDS ORDERED: VANCOMYCIN250 MG/5 M ORAL (17:05)
[2017-11-15] MEDS ORDERED: POTASSIUM CHLO20 ME1 ORAL (17:05)
--- NOTE | 2017-11-15 19:46 | Cardiology Progress Note ---
Assessment/Plan Assessment/Plan 1. Altered level of consciousness with presentation to the emergency room. 2. syncope. 3. History of colorectal cancer, status post resection, chemo, and radiation therapy. 4. Recent C. difficile colitis with profound diarrhea. 5. Diabetes mellitus. 6. Hypertension. 7. Previous history of tobacco and alcohol use. ivf tele neg ekg neg prelim echo noted trop neg probnp normal agree with dc palnning flornief 2 times per week Subjective Cardiovascular: Denies: chest pain, lightheadedness, palpitations Gastrointestinal/Abdominal: Denies: abdominal pain Genitourinary: Denies: burning Objective Last 24 Hour Vital Signs Date Time Temp Pulse Resp B/P (MAP) Pulse Ox O2 Delivery O2 Flow Rate FiO2 11/15/17 16:00 95 11/15/17 16:00 98.1 96 20 113/71 (85) 98 98.1 11/15/17 12:00 97.8 94 20 105/72 (83) 97 97.8 11/15/17 12:00 94 11/15/17 09:00 Room Air 11/15/17 08:10 118 11/15/17 08:05 134 11/15/17 08:00 117 11/15/17 08:00 122 11/15/17 08:00 98.0 117 20 128/80 (96) 99 98.0 11/15/17 04:00 89 11/15/17 04:00 98.6 90 22 112/69 (83) 99 98.6 11/15/17 00:00 97.6 95 18 105/68 (80) 98 97.6 11/15/17 00:00 109 11/14/17 21:00 Room Air 11/14/17 20:00 97.6 96 18 122/76 (91) 97 97.6 11/14/17 20:00 104 General Appearance: no apparent distress, alert Cardiovascular: normal rate, regular rhythm Respiratory/Chest: lungs clear Abdomen: normal bowel sounds, non tender, soft Extremities: no swelling Intake and Output 11/14/17 11/15/17 19:00 07:00 Intake Total 1000 ml 1320 ml Output Total 650 ml Balance 1000 ml 670 ml Intake Oral 720 ml IV Total 600 ml Other 1000 ml Output Urine Total 650 ml # Voids 3 # Bowel Movements 6 4 Laboratory Tests Test 11/15/17 07:41 White Blood Count 4.6 K/UL (4.8-10.8) L Red Blood Count 3.60 M/UL (4.70-6.10) L Hemoglobin 10.4 G/DL (14.2-18.0) L Hematocrit 32.8 % (42.0-52.0) L Mean Corpuscular Volume 91 FL (80-99) Mean Corpuscular Hemoglobin 28.9 PG (27.0-31.0) Mean Corpuscular Hemoglobin Concent 31.7 G/DL (32.0-36.0) L Red Cell Distribution Width 16.7 % (11.6-14.8) H Platelet Count 234 K/UL (150-450) Mean Platelet Volume 5.5 FL (6.5-10.1) L Neutrophils (%) (Auto) 60.8 % (45.0-75.0) Lymphocytes (%) (Auto) 22.0 % (20.0-45.0) Monocytes (%) (Auto) 14.4 % (1.0-10.0) H Eosinophils (%) (Auto) 1.6 % (0.0-3.0) Basophils (%) (Auto) 1.2 % (0.0-2.0) Sodium Level 140 MMOL/L (136-145) Potassium Level 3.9 MMOL/L (3.5-5.1) Chloride Level 107 MMOL/L (98-107) Carbon Dioxide Level 29 MMOL/L (21-32) Anion Gap 4 mmol/L (5-15) L Blood Urea Nitrogen 8 mg/dL (7-18) Creatinine 0.7 MG/DL (0.55-1.30) Estimat Glomerular Filtration Rate mL/min (>60) Glucose Level 94 MG/DL (74-106) Calcium Level 7.4 MG/DL (8.5-10.1) L Microbiology Date/Time Source Procedure Growth Status 11/13/17 02:35 Blood Blood Culture - Preliminary NO GROWTH AFTER 48 HOURS Resulted 11/13/17 02:35 Blood Blood Culture - Preliminary NO GROWTH AFTER 48 HOURS Resulted 11/13/17 03:00 Nasal Nares MRSA Culture - Final NO METHICILLIN RESISTANT STAPH AUREUS... Complete 11/13/17 14:20 Stool Clostridium difficile Toxin Assay - Final Complete 11/13/17 03:00 Rectum VRE Culture - Final Enterococcus Faecium - Vre Complete 11/13/17 03:00 Rectum - Final NO CARBAPENEM-RESISTANT ENTEROBACTERI... Complete Yuniel Pina MD Nov 15, 2017 19:46
[2017-11-15 20:00] VITALS: BP 137/88
--- NOTE | 2017-11-16 08:16 | Discharge Summary ---
Discharge Summary Discharge Summary _ DATE OF ADMISSION: 11/13/2017 DATE OF DISCHARGE: 11/15/2017 CONSULTANTS: Dr. Carlito Pina BRIEF HOSPITAL COURSE: Patient is a 77-year-old male, who presented to emergency room from [facility] because of hypotension and syncope. He was previously hospitalized at [facility] for C. difficile colitis and abdominal pain. He was at the nursing facility since approximately 11/06/2017. Per EMS report, patient was hypotensive in the field, he was given IV fluids with improvement of blood pressure. He had a syncopal episode, there was no head trauma. He denied chest pain, headache, dyspnea, nausea/vomiting, diarrhea, nor dysuria. On evaluation at ED, initial blood pressure was 87/59. Labs showed low potassium of 3.1 and low hemoglobin. Albumin was low. He was hypotensive and was given IV fluid resuscitation. Blood pressure improved. He was then admitted for evaluation. He underwent cardiac evaluation. Electrocardiogram showed sinus rhythm with premature atrial complexes, no significant ST to T wave abnormalities. Orthostatic blood pressure was checked. He had an episode of orthostasis. He was continued on metoprolol 25 mg twice a day. Echocardiogram showed ejection fraction of 60-65%. Venous duplex of lower extremity was negative for DVT. Troponins were negative. ProBNP normal. Patient had diarrhea and was initially started on po Flagyl. ID consult was done. Medication was switched to po vancomycin. Stool C. difficile was negative. Patient's diarrhea seemed to improved with po vancomycin. A negative C. difficile testing sometimes could be a false negative since patient has history of C. difficile diarrhea. He was advised to continue vancomycin for 10-14 day course. He was eventually discharged back to [facility]. FINAL DIAGNOSES: Hypotension C. difficile colitis with persistent diarrhea Diabetes with history of neuropathy Severe protein calorie malnutrition with edema Possible congestive heart failure DISPOSITION: Patient was discharged back to [facility]. DISCHARGE MEDICATIONS: Refer to Discharge Medication List. I have been assigned to dictate discharge summary on this account, and I was not involved in the patient's management. Trish Shook NP Nov 16, 2017 08:16
--- NOTE | 2017-11-21 07:41 | Diagnostic Imaging Report ---
APPROVED REPORT CPT Code: 75756 Present Symptoms Lower Extremity Pain: Bilateral BILATERAL: Imaging reveals a patent deep venous system bilaterally. There is no evidence of thrombus within the femoral, popliteal or tibial segments. The greater saphenous veins are also within normal limits. Doppler indicates normal spontaneous flow within these segments.
== END 2017-11-15 21:30 | DRG 314 ==
LOC: EDBD 22:58 → EMR 23:15 → 2E 11-13 01:30 → EDBEDREQ 11-13 05:17
DX: I95.9 Hypotension, unspecified (principal); E43 Unspecified severe protein-calorie malnutrition; A04.72 Enterocolitis due to Clostridium difficile, not specified as recurrent; E11.42 Type 2 diabetes mellitus with diabetic polyneuropathy; F41.9 Anxiety disorder, unspecified; K21.9 Gastro-esophageal reflux disease without esophagitis; R26.2 Difficulty in walking, not elsewhere classified; I11.0 Hypertensive heart disease with heart failure; E87.6 Hypokalemia; I50.9 Heart failure, unspecified; Z68.20 Body mass index [BMI] 20.0-20.9, adult; Z79.4 Long term (current) use of insulin; Z85.038 Personal history of other malignant neoplasm of large intestine; Z92.3 Personal history of irradiation; Z92.21 Personal history of antineoplastic chemotherapy; Z87.891 Personal history of nicotine dependence
CPT/HCPCS: 36415; 71045; 80048; 80053; 81003; 82550; 82962; 83036; 83605; 83735; 83880; 84153; 84443; 84484; 85025; 85610; 85730; 87040; 87081; 87324; 93005; 93306; 93970; 99285; J1815; J8499